=== PATIENT | female | born 1960 | race Caucasian/White ===

== ENCOUNTER 2021-01-14 22:30 | Emergency (ER) | payer OTHER ==
[~2021-01-14 22:30] MED LIST: LIDOCAINE PATCH REMOVAL MC SCH
[2021-01-14 22:39] VITALS: BP 135/66; PULSE 71; TEMP 98; BMI 23.8
[2021-01-14] MEDS ORDERED: ACETAMINOPHEN 325 MG TABLET (FP) PO ONE (23:07)
[2021-01-14] MEDS ORDERED: IBUPROFEN 400 MG TABLET (FP) PO ONE ×2 (23:07→23:18)
[2021-01-14] MEDS ORDERED: LIDOCAINE 5% TOPICAL PATCH TP ONE (23:07)
[2021-01-14] MEDS ORDERED: ACETAMINOPHEN 325 MG TABLET (FP) ONE (23:17)
[2021-01-14] MEDS ORDERED: LIDOCAINE 5% TOPICAL PATCH ONE (23:20)
[2021-01-14] MEDS ORDERED: METHOCARBAMOL 500 MG TABLET PO ONE (23:29)
[2021-01-15] MEDS ORDERED: METHOCARBAMOL 500 MG TABLET ONE (01:29)
== END 2021-01-15 02:09 | disposition home or self-care (01) ==
LOC: JER 22:30
DX: M25.551 Pain in right hip (principal); M54.41 Lumbago with sciatica, right side; G89.29 Other chronic pain
CPT/HCPCS: 72100-TC-FY; 73523-TC-FY; 99284-25